=== PATIENT | female | born 1945 | race Two or more races ===

== ENCOUNTER 2023-10-24 20:18 | Emergency (ER) | payer OTHER ==
[~2023-10-24] VITALS: Ht 157.5 cm; Wt 79.4 kg
[2023-10-24] MEDS ORDERED: IRBESARTAN-HCT1 EACH PO (20:33)
[2023-10-24] MEDS ORDERED: PROTONIX IV40 MG IV (20:34)
[2023-10-24] MEDS ORDERED: TOPROL XL25 M1 PO (20:34)
[2023-10-24] MEDS ORDERED: ACETAMINOPHEN 500 MG GEL..CAP PO STA (23:10)
[2023-10-24] MEDS ORDERED: ACETAMINOPHEN 500 MG GEL..CAP PO ONE (23:19)
[2023-10-25] MEDS ORDERED: DOLOGESIC-DF 51 EACH PO (01:16)
== END 2023-10-25 01:27 ==
LOC: ER 20:19
DX: S00.83XA Contusion of other part of head, initial encounter (principal); W01.0XXA Fall on same level from slipping, tripping and stumbling without subsequent striking against object, initial encounter; Y93.89 Activity, other specified; Y92.238 Other place in hospital as the place of occurrence of the external cause; I10 Essential (primary) hypertension